=== PATIENT | male | born 1995 | race Caucasian/White ===

== ENCOUNTER 2019-05-29 22:03 | Emergency (ER) | payer SELFPAY ==
[~2019-05-29] VITALS: Ht 172.7 cm; Wt 79.5 kg
[2019-05-29 22:11] VITALS: BP 141/88; PULSE 131; TEMP 98.5
== END 2019-05-29 22:16 | disposition left against medical advice (07) ==
LOC: COL.ER 22:03
DX: R69 Illness, unspecified (principal)